=== PATIENT | female | born 1995 | race Two or more races ===

== ENCOUNTER 2019-03-13 05:00 | Emergency (ER) | payer SELFPAY ==
[2019-03-13 05:11] VITALS: BP 122/87
[2019-03-13] MEDS ORDERED: AMOXICILLIN TR/POT CLAVULANATE 500-125 MG TAB PO ONE (05:40)
[2019-03-13] MEDS ORDERED: AMOXICILLIN TRIHYDRATE 500 MG CAPSULE PO ONE (05:40)
--- NOTE | 2019-03-13 05:58 | ER Document Report ---
HPI - HPI Time Seen by Provider: 03/13/19 05:35 Pain Level: 3 Context: Patient is a 23-year-old female that comes to the emergency department for chief complaint of dog bite to the left hand. This is between the fourth and fifth digits of the left hand. She is left-handed. The dog was a lab and pitbull mix that is belonging to her friend's friend. Dog is vaccinated, patient is vaccinated and up-to-date. She denies any other injuries or any other complaints. - CONSTITUTIONAL Constitutional: DENIES: Fever, Chills - REPRODUCTIVE Reproductive: DENIES: : Past Medical History - Social History Smoking Status: Current Every Day Smoker Frequency of alcohol use: Occasional Drug Abuse: None Lives with: Family Family History: Reviewed & Not Pertinent Patient has suicidal ideation: No Patient has homicidal ideation: No - Medical History Medical History: Negative Surgical Hx: Negative - Immunizations Immunizations up to date: Yes Hx Diphtheria, Pertussis, Tetanus Vaccination: Yes Vertical Provider Document - CONSTITUTIONAL General Appearance: WD/WN, No Apparent Distress - HEENT HEENT: Atraumatic, Normal ENT Exam, Normocephalic - NECK Neck: Normal Inspection - RESPIRATORY Respiratory: Breath Sounds Normal, No Respiratory Distress - CARDIOVASCULAR Cardiovascular: Regular Rate, Regular Rhythm - GI/ABDOMEN Gastrointestinal: Abdomen Soft, Abdomen Non-Tender - BACK Back: Normal Inspection - MUSCULOSKELETAL/EXTREMETIES Musculoskeletal/Extremeties: MAEW, FROM, Tender - Left hand with some mild soft tissue swelling and abrasions dorsally, in addition to this there is a 1 cm semi-linear partial-thickness laceration into the subcutaneous tissue along the side of the fourth digit between the fourth and fifth digits. Normal strength against resistance with flexion and extension, normal capillary refill and sensation, wound is easy to explore and there is no evidence of tendon, large vessel, or nerve damage. Unremarkable exam otherwise. - NEURO Level of Consciousness: Awake, Alert, Appropriate Motor/Sensory: No Motor Deficit, No Sensory Deficit - DERM Integumentary: Warm, Dry, No Rash Course - Re-evaluation Re-evalutation: There is some mild soft tissue swelling of the dorsum of the hand, laceration of the left hand as well, discussed x-ray but this was declined. I feel this is appropriate because the wound was easy to explore, in addition to this there is no bony tenderness. Wound is partial-thickness but there is no evidence of tendon, large vessel, or nerve injury. I discussed the pros and cons, decision was made to leave this open. I irrigated this thoroughly with 1 L of normal saline, cleaned with Shur-Clens, dressed with Xeroform and compression dressing. Fortunately the laceration closes completely with approximation of the 2 fingers so this was dressed in this way. I discussed antibiotics, follow-up, return precautions. Patient states understanding and agreement. - Vital Signs Vital signs: Temp Pulse Resp BP Pulse Ox 98 F 114 H 17 122/87 H 99 03/13/19 05:10 03/13/19 05:10 03/13/19 05:10 03/13/19 05:10 03/13/19 05:10 Discharge - Discharge Clinical Impression: Dog bite Qualifiers: Encounter type: initial encounter Qualified Code(s): W54.0XXA - Bitten by dog, initial encounter Condition: Stable Disposition: HOME, SELF-CARE Additional Instructions: Because of the risk of wound infection the wound was not closed. I recommend keeping the Xeroform (yellow part) dressing on for the next 2 to 3 days, clean with soap and water, after the Xeroform dressing is removed apply topical antibiotic with your dressing. Take the antibiotic as prescribed. Follow-up with primary care. Return for any signs of infection including developing pain, redness, swelling, discolored discharge, fever/chills, or any other concerning symptoms. Prescriptions: Amox Tr/Potassium Clavulanate [Augmentin 875-125 Tablet] 1 tab PO BID 7 Days tablet Forms: Return to Work
== END 2019-03-13 06:29 | disposition home or self-care (01) ==
LOC: ER 05:00
DX: S61.412A Laceration without foreign body of left hand, initial encounter (principal); W54.0XXA Bitten by dog, initial encounter; F17.200 Nicotine dependence, unspecified, uncomplicated
CPT/HCPCS: 99283